=== PATIENT | female | born 1950 | race Caucasian/White ===

== ENCOUNTER 2024-01-08 05:46 | Day surgery (SDC) | payer MEDICARE ==
[2024-01-07 10:10] VITALS: BMI 33.9
[2024-01-08] MEDS ORDERED: PHENYLEPHRINE-NS 100 MCG/ML 10 ML SYRINGE ONE ×2 (06:47→07:11)
[2024-01-08] MEDS ORDERED: PROPOFOL 20 ML ONE (06:48)
[2024-01-08] MEDS ORDERED: Lidocaine 1% PF 5 ML VIAL ONE (07:10)
[2024-01-08] MEDS ORDERED: PROPOFOL 40 ML ONE (07:10)
== END 2024-01-08 08:42 | disposition home or self-care (01) ==
LOC: SDC 05:46
PROVIDERS: ATTEND Internal Medicine Cardiovascular Disease
PROC: B246ZZ4 Ultrasonography of Right and Left Heart, Transesophageal (ICD-10-PCS; principal; 2024-01-08)
DX: I48.0 Paroxysmal atrial fibrillation (principal)
CPT/HCPCS: 93312; J2704